=== PATIENT | female | born 1975 | race Hispanic/Latino ===

== ENCOUNTER 2022-10-11 16:15 | Emergency (ER) | payer OTHER ==
[~2022-10-11] VITALS: Ht 167.6 cm; Wt 79.4 kg
[2022-10-11 17:06] LABS: BASOPHILS % (AUTO) 0.4 % (0.0-5.0); EOSINOPHILS % (AUTO) 1.5 % (0.0-8.0); HEMATOCRIT 39.9 % (36-48); LYMPHOCYTES % (AUTO) 23.2 % (21.0-51.0); MEAN CORPUSCULAR HEMOGLOBIN 30.2 pg (27.0-33.0); MEAN CORPUSCULAR HGB CONC 35.3 g/dL (32.0-36.0); MEAN CORPUSCULAR VOLUME 85.4 fL (79-99); MONOCYTES % (AUTO) 8.2 % (3.0-13.0); NEUTROPHILS % (AUTO) 66.4 % (40.0-77.0); PLATELET COUNT (AUTO) 184 K/uL (130-400); RED BLOOD CELL COUNT(AUTO) 4.67 MIL/uL (4.00-5.50); RED CELL DISTRIBUTION WIDTH 12.6 % (11.0-15.5); WHITE BLOOD COUNT (AUTO) 7.9 K/uL (4.8-10.8)
[2022-10-11 17:22] LABS: ALBUMIN 3.4 g/dL (3.5-5.0); CREATININE 0.8 mg/dL (0.5-1.5); MAGNESIUM 1.7 mg/dL (1.80-2.40); POTASSIUM 3.2 mmol/L (3.5-5.1); TOTAL PROTEIN, SERUM 6.9 g/dL (6.0-8.3)
[2022-10-11] MEDS ORDERED: LIDOCAINE HCL 2% VISCOUS 15 ML UDCUP PO ONE (18:30)
[2022-10-11] MEDS ORDERED: MAG/ALUM/SIMETH 30 ML UDCUP PO ONE (18:30)
[2022-10-11] MEDS ORDERED: FAMOTIDINE 20MG TAB PO ONE (18:30)
[2022-10-11] MEDS ORDERED: KETOROLAC 30MG VIAL (30MG/ML) IM ONE (18:30)
[2022-10-11] MEDS ORDERED: IBUP-2070 PO (19:13)
[2022-10-11 19:30] VITALS: BP 129/58
[2022-10-11] MEDS ORDERED: POTASSIUM BICARB/CIT AC 25 MEQ TABLET.EFF PO ONE (19:30)
== END 2022-10-11 19:35 | disposition home or self-care (01) ==
LOC: EDH 16:15
DX: R07.89 Other chest pain (principal); Z98.890 Other specified postprocedural states
CPT/HCPCS: 99285; 71045; 83735; 84484 ×2; 80053; 85025; 36415; 96372; 93005; J1885

== ENCOUNTER 2025-06-22 09:01 | Emergency (ER) | payer BC, OTHER ==
[~2025-06-22] VITALS: Ht 162.6 cm; Wt 83.0 kg
[~2025-06-22 09:01] MED LIST: IBUP-1492 PO
[2025-06-22] MEDS: TETRACAINE HCL 0.5% 4 ML OPHTH SOLN OP STA (09:51)
[2025-06-22] MEDS: FLUORESCEIN SODIUM 1 STRIP STRIP OP ONE (09:56)
[2025-06-22 10:20] VITALS: BP 109/71; PULSE 88; RESP 17; TEMP 98.4; O2SAT 98
--- NOTE | 2025-06-22 10:27 | ERN ---
General Chief Complaint: Eye Problems Stated Complaint: EYE PROBLEM Time Seen by MD: 09:03 Source: patient History of Present Illness Initial Comments Patient is a 49-year-old female coming in complaining of left eye redness. Patient states that this has been ongoing since yesterday. She states that yesterday she woke up with a it got concerned today came in for further evalu ation. She states that she is able to see. Allergies: Coded Allergies: No Known Allergies (Unverified Allergy, Unknown, 10/11/22) Home Meds Active Scripts Ibuprofen (Ibuprofen) 600 Mg Tablet, 600 MG PO Q6H PRN for PAIN, #15 TAB Prov:MIRA GARCIA FORCER MAKER 10/11/22 Past Medical History Past Medical History: Hypertension Past Surgical History: None ROS Dictation CONSTITUTIONAL: No chills, no fever, no weakness, no diaphoresis, no malaise. HEAD/FACE: No signs of trauma. EENT: No eye pain, no blurred vision, no tearing, no double vision, no ear pain, no ear discharge, no nose pain, no nasal congestion, no throat pain, no throat swelling, no mouth pain. RESPIRATORY: No cough, no orthopnea, no SOB, no stridor, no wheezing. CARDIOVASCULAR: No chest pain, no edema, no palpitations, no syncope. GASTROINTESTINAL/ABDOMINAL: No abdominal pain, no constipation, no diarrhea, no nausea, no vomiting. GENITOURINARY: No abnormal discharge, no dysuria, no frequent urination, no hematuria. No complaints of pain in the genitals. MUSCULOSKELETAL: No back pain, no gout, no joint pain, no joint swelling, no muscle pain, no muscle stiffness, no neck pain. INTEGUMENTARY: No change in color, no change in hair/nails, no dryness, no lesion, no lumps, no rash. NEUROLOGICAL/PSYCH: No anxiety, not depressed, no emotional problem, no headache, no numbness, no pre-existing deficit, no history of seizures, no tremors, no weakness. HEMATOLOGIC/LYMPHATIC: Not anemic, no history of blood clots, no apparent bleeding, no bruising, glands not swollen. All Systems Negative, Except as Noted. Physical Exam Physical Exam Dictation VITAL SIGNS: Reviewed. GENERAL APPEARANCE: Alert, oriented x3, no acute distress, obese. HEAD AND FACE: Non-traumatic. EYES: PERRL, pink conjunctivas, subconjunctival hemorrhage EARS: Pinnas intact and no signs of trauma or erythema. Ear canals clear and no discharge. TMs no erythema. NOSE: No discharge, no bleeding. OROPHARYNX: Mouth normal, teeth no caries, tongue pink. Pharynx clear, no erythema. Tonsils no exudates, no abscesses noted. Mucous membrane moist. NECK: Supple, non-tender, no thyromegaly, no masses, no JVD, no bruits. BREAST: Deferred. CHEST: No tenderness, no crepitus, no paradoxical movement, no retractions. LUNGS: Clear, well-ventilated, symmetric, no rales, no wheezing, no rhonchi, no stridor, good breath sounds bilaterally. HEART: Regular rate, regular rhythm, no murmur, no gallops. VASCULAR: No peripheral edema. ABDOMEN: Soft, positive bowel sounds, nondistended, no guarding, nontender, no rebound, no masses no hepatomegaly, no splenomegaly, no Mukherjee's sign, no hernias. RECTAL: Deferred. GENITAL: Deferred. NEUROLOGICAL: Normal speech, gross motor function intact, gross sensory function intact. MUSCULOSKELETAL: Neck nontender, full range of motion, back nontender, full range of motion. EXTREMITIES: Nontender, full range of motion. SKIN: Color pink, dry, no turgor, no rash, no lacerations, no abrasions, no contusions. LYMPHATICS: Deferred. Results Laboratory and Microbiology Labs Reviewed?: Yes MDM MDM: Differential diagnosis: Subconjunctival hemorrhage Rationale: Tests considered and ordered secondary to shared decision making include: Previous outside records reviewed: Old ER visits. Risk of complication and/or morbidity or mortality of patient management: None Medications-Per medication reconciliation Need for hospitalization: Patient does not meet criteria for hospitalization. Need for emergency major/minor surgery: No Patient is a 49-year-old female coming in with left eye discomfort in the erythema. Patient's visual acuity with a and with a glasses was within normal limits. On physical exam ocular pressure equal bilateral. Fluorescein test did not show was any conjunctival abrasion. No other foreign body noticed m edication will be provided for symptomatic relief. Patient will be discharged in stable condition. I also advised him appropriate follow up with the offset lithographic press operator scheduled [facility] [place] was done. ED Course Orders Procedure Category Date Status Time Tetracaine Hcl PHA 06/22/25 Complete (Pontocaine 0.5% 09:05 Fluorescein Sodium PHA 06/22/25 Complete (Ppmpd-T-Fcplo At) 10:00 Current Medications Medications (Trade) Dose Ordered Sig/Jason Route PRN Reason Start Time Stop Time Status Last Admin Dose Admin Fluorescein Sodium (Qajte-L-Yyodz At) 2 strip ONCE ONCE OP 06/22/25 10:00 06/22/25 10:01 DC 06/22/25 09:56 Tetracaine HCl (Pontocaine 0.5% Ophth Soln) 2 drop ONCE STAT OP 06/22/25 09:05 06/22/25 09:10 DC 06/22/25 09:51 Vital Signs Date Time Temp Pulse Resp B/P (MAP) Pulse Ox O2 Delivery O2 Flow Rate FiO2 06/22/25 10:20 98.4 88 17 109/71 98 Room Air* 0 21 06/22/25 09:07 98.4 87 16 148/83 97 Room Air* 0 21 06/22/25 09:02 98.4 87 16 148/83 97 Room Air 0 DX & DISP Disposition: Discharge Departure Impression: Primary Impression: Subconjunctival hemorrhage Condition: Stable Scripts Tetrahydrozoline HCl (Eye Drops) 0.05 % Drops 15 ML OP TID for 7 Days, #50 DROP Prov: ADIA MONGE MD 06/22/25 Additional Instructions: FOLLOW-UP WITH PRIMARY CARE PROVIDER IN 1 TO 2 DAYS. TAKE MEDICATIONS DIRECTED HERE IN THE EMERGENCY ROOM. OKAY TO CONTINUE HOME MEDICATIONS UNLESS OTHERWISE DISCUSSED DURING YOUR VISIT IN THE EMERGENCY ROOM TODAY. RETURN TO YOUR NEAREST EMERGENCY ROOM IF SYMPTOMS WORSEN OR IF THERE IS NO IMPROVEMENT. CALL 911 IF YOU NEED IMMEDIATE ASSISTANCE. TAKE TYLENOL [id number] NEEDED AND IF NO CONTRAINDICATIONS ARE PRESENT. INCREASE ORAL HYDRATION. A WOUND CULTURE OR URINE CULTURE WAS ORDERED HERE IN THE EMERGENCY ROOM DEPARTMENT PLEASE FOLLOW-UP WITH PRIMARY CARE PROVIDER AND ADVISE THEM TO GET REPORTS FROM OUR FACILITY. IF YOU HAD ANY ANTONELLA WRAP/SPLINTS THAT WERE APPLIED HERE, PLEASE DO NOT REMOVE THEM UNTIL YOU SEE YOUR PRIMARY CARE OR SPECIALTY. Referrals: Referrals: DEQUAN RUSSELL (PCP) Time of Disposition: 10:56 ADIA MONGE MD Jun 22, 2025 10:27
[2025-06-22] MEDS ORDERED: [UNRECOGNIZED DRUG - CODE] OP (11:01)
== END 2025-06-22 11:21 | disposition home or self-care (01) ==
LOC: EDH 09:01
DX: H11.32 Conjunctival hemorrhage, left eye (principal); I10 Essential (primary) hypertension; Z79.899 Other long term (current) drug therapy
CPT/HCPCS: 99282